=== PATIENT | male | born 1965 | race Caucasian/White ===

== ENCOUNTER 2017-04-11 09:11 | Day surgery (SDC) | payer OTHER ==
[2017-04-11] MEDS ORDERED: ceFAZolin 2 GM/50 ML 50 ML IV ONE (09:25)
[2017-04-11] MEDS ORDERED: LACTATED RINGERS 1,000 ML IV ONE ×3 (09:51→13:40)
[2017-04-11] MEDS ORDERED: ONDANSETRON 4 MG/2 ML VIAL ONE (10:55)
[2017-04-11] MEDS ORDERED: ROCURONIUM 50 MG/5 ML VIAL IVP ONE (13:00)
[2017-04-11] MEDS ORDERED: fentaNYL 100 MCG/2 ML VIAL IVP ONE (13:00)
[2017-04-11] MEDS ORDERED: ONDANSETRON 4 MG/2 ML VIAL IVP ONE (13:00)
[2017-04-11] MEDS ORDERED: MIDAZOLAM 2 MG/2 ML VIAL IVP ONE (13:00)
[2017-04-11] MEDS ORDERED: KETOROLAC 30 MG/ML VIAL IVP ONE (13:00)
[2017-04-11] MEDS ORDERED: NEOSTIGMINE 1 MG/1 ML 10 ML MDV IVP ONE (13:00)
[2017-04-11] MEDS ORDERED: GLYCOPYRROLATE 1 MG/5 ML VIAL IVP ONE (13:00)
[2017-04-11] MEDS ORDERED: LIDOCAINE-MPF 2% 5 ML VIAL IM ONE (13:00)
[2017-04-11] MEDS ORDERED: DEXAMETHASONE 4 MG/ML VIAL IVP ONE (13:00)
[2017-04-11] MEDS ORDERED: BUPIVACAINE 0.5%-EPI 1:200000 PF 30 ML VIAL SUBQ ONE (13:08)
[2017-04-11] MEDS: HYDROmorphone 1 MG/ML SYRINGE ONE ×2 (14:40→14:50)
[2017-04-11] MEDS ORDERED: oxyCOD/ACETAMIN 5 MG/325 MG TABLET PO ONE (15:08)
[2017-04-11 15:23] VITALS: BP 126/85
--- NOTE | 2017-04-11 16:21 | OPERATIVE REPORT ---
DATE OF SURGERY: 04/11/2017 00:00:00 TIME: 1430. PREOPERATIVE DIAGNOSIS: Left inguinal hernia. PROCEDURE: Direct left inguinal hernia repair. POSTOPERATIVE DIAGNOSIS: Left inguinal hernia. MESH USED: Bard mesh PerFix plug reference #[id number], lot number [id number], use by date is 2021-12-27. SURGEON: Clem SOLIS MD. ANESTHESIA: Aube (general endotracheal) plus 30 mL of 0.5% Marcaine. ESTIMATED BLOOD LOSS: 10 mL. FLUIDS: 1500 mL crystalloid. SPECIMENS: No specimens were removed. DETAILS OF PROCEDURE: After informed consent was obtained detailing the risks of infection, bleeding with all of its risks, testicular atrophy, and , the patient was brought to the operative suite and placed supine on the operating table. Preoperative antibiotics were given for prophylaxis against surgical infection. TEDs and Venodynes were placed for prophylaxis against deep venous thrombosis. G eneral anesthesia was induced by Shobha Mcguire, and Shobha Mcguire provided anesthesia care for the en tirety of the case. The patient was then prepped and draped in the usual standard manner. At this poi nt, a time-in was done that confirmed the patient's identity via 3 separate independent factors inclu ding his name, medical record number, and date of . In addition, we confirmed that safety proced ures were in place, the patient received his preoperative antibiotics, the patient had TEDs and Venod kortney on, the patient's operative site had been marked by me preoperatively, the history and physical was in the chart, consent form signed by the patient, as well as myself was in the chart, and that we had the personnel and equipment required to perform the proposed procedure. With the agreement of lalo harmon in the room, the operation was allowed to proceed. A standard left inguinal incision was made and dissection was carried out past Diane's fascia to the external oblique. The external oblique was cleared of any surrounding tissue and its fibers were spl it in the direction of fibers and opened. This was taken down to the external ring using Metzenbaum s cissors. The ilioinguinal nerve was seen and preserved. Gentle dissection around the cord contents al lowed me to dissect these free at the pubic tubercle and a [place]ore drain was placed about them to hel p in retraction and visualization. Examination of the cord did not reveal any indirect sac. Instead, there was essentially complete absence of the floor of the inguinal canal. Thus, the patient had a di rect inguinal hernia. A large Bard PerFix mesh plug was obtained and the inner leaflet was cut out le aving it with 2 rows of leaflets, thus making a slightly less bulky piece of mesh. This was inserted into the opening, which was the floor of the canal and secured superiorly to the conjoined tendon and inferiorly to the shelving edge of Poupart's ligament with a 0 PDS suture. Two sutures were used to keep the direct hernia sac out of my way to allow for closure. The onlay patch was then obtained and sewed to the pubic tubercle using an 0 PDS, superiorly to the conjoined tendon and inferiorly to the shelving edge of Poupart's ligament with interrupted sutures. This was done going up laterally until the edges of the mesh could be tucked underneath the open external oblique. By doing so, a new logistics intern al ring was also created. The external oblique was then closed using a running 2-0 Vicryl suture. The entire area was then infiltrated using 0.5% Marcaine. This was done at the superficial level of the skin, as well as deeper. Diane's fascia was approximated using an interrupted 2-0 Vicryl suture. The skin was approximated using a 4-0 Monocryl in a running subcuticular fashion. The skin prep was wash ed off and Mastisol and Steri-Strips were applied. Dressing was applied over this and the patient was subsequently extubated and taken to the recovery room in good and stable condition having tolerated the procedure well. JOB #: [id number] JOB #:[id number]
== END 2017-04-11 09:12 | disposition home or self-care (01) ==
LOC: SDS 09:11
PROVIDERS: ATTEND Surgery
PROC: 0YU60JZ Supplement Left Inguinal Region with Synthetic Substitute, Open Approach (ICD-10-PCS; principal; 2017-04-11 11:15)
DX: K40.90 Unilateral inguinal hernia, without obstruction or gangrene, not specified as recurrent (principal); I10 Essential (primary) hypertension; R06.83 Snoring
CPT/HCPCS: 49505; A9270; C1781; J0690; J1170; J7120